=== PATIENT | female | born 1995 | race African-American/Black ===

== ENCOUNTER 2017-07-03 15:04 | Emergency (ER) | payer SELFPAY ==
[2017-07-03 15:39] LABS: Bilirubin Negative (Negative); Blood, Urine Negative (Negative); Glucose, Urine (Dipstick) Negative (Negative); Ketone, Urine Negative (Negative); Nitrite Negative (Negative); Protein, Urine (Dipstick) Negative (Neg-Trace); Urobilinogen 0.2 mg/dL (0.2-1.0)
== END 2017-07-03 17:52 | disposition home or self-care (01) ==
LOC: ERS 15:04
DX: A59.01 Trichomonal vulvovaginitis (principal); N76.0 Acute vaginitis; B96.89 Other specified bacterial agents as the cause of diseases classified elsewhere
CPT/HCPCS: 81003; 81025; 87480; 87491; 87510; 87591; 87660; 99283

== ENCOUNTER 2017-10-30 00:01 | Emergency (ER) | payer SELFPAY ==
[2017-10-30] MEDS ORDERED: Ibuprofen 800 MG TAB ONE (02:06)
== END 2017-10-30 02:15 | disposition home or self-care (01) ==
LOC: ERS 00:01
DX: J11.1 Influenza due to unidentified influenza virus with other respiratory manifestations (principal); J40 Bronchitis, not specified as acute or chronic; F41.9 Anxiety disorder, unspecified; Z71.6 Tobacco abuse counseling
CPT/HCPCS: 99406

== ENCOUNTER 2017-12-20 04:41 | Emergency (ER) | payer SELFPAY ==
[2017-12-20] MEDS ORDERED: diphenhydrAMINE 50 MG/ML VIAL ONE (04:50)
== END 2017-12-20 05:15 | disposition home or self-care (01) ==
LOC: ERS 04:41
DX: O99.341 Other mental disorders complicating pregnancy, first trimester (principal); F41.9 Anxiety disorder, unspecified; Z3A.10 10 weeks gestation of pregnancy; Z87.891 Personal history of nicotine dependence; W10.9XXA Fall (on) (from) unspecified stairs and steps, initial encounter
CPT/HCPCS: 96372; J1200

== ENCOUNTER 2018-01-04 15:59 | Emergency (ER) | payer MEDICAID, OTHER, SELFPAY ==
[2018-01-04 16:36] LABS: #Lymphocytes 2.1 thou/uL (1.20-3.40); #Monocytes 0.4 thou/uL (0.11-0.59); #Neutrophils 6.1 thou/uL (1.40-6.50); %Basophils 0.5 % (0.0-1.0); %Eosinophils 0.5 % (0.0-10.0); %Lymphocytes 24.2 % (21.0-51.0); %Monocytes 4.8 % (0.0-10.0); %Neutrophils 69.9 % (42.0-75.0); Hemoglobin 11.8 g/dL (12.0-16.0); Mean Corpuscular HGB CONC 34.4 g/dL (32.0-36.0); Mean Corpuscular Hemoglobin 33.2 pg (27.0-31.0); Mean Corpuscular Volume 96.6 fl (81.0-99.0); Mean Platelet Volume 7.6 fL (7.4-10.4); Platelet Count 208 thou/uL (130-400); RBC Distribution Width 11.7 % (11.5-14.5); Red Blood Cell (RBC) Count 3.56 mill/uL (4.20-5.40); White Blood Cell (WBC) Count 8.7 thou/uL (4.8-10.8)
[2018-01-04 16:37] LABS: BHCG - Serum POSITIVE (NEGATIVE); Pregs Control Background? CLEAR/WHITE (CLR/WHITE); Pregs Control Bar Appear? YES (CONTROL BAR)
[2018-01-04 17:45] LABS: Bilirubin Negative (Negative); Blood, Urine Negative (Negative); Clarity CLEAR (Clear); Glucose, Urine (Dipstick) Negative (Negative); Leukocyte Negative (Negative); Nitrite Negative (Negative); Protein, Urine (Dipstick) Negative (Neg-Trace); Specific Gravity, Urine 1.028 (1.002-1.036)
--- NOTE | 2018-01-04 18:14 | ULT ---
OB ULTRASOUND: Comparison: None. History: Vaginal spotting for four hours prior to arrival and cramping on the left side. The patient is 13 weeks . Technique: Multiplanar grayscale and color doppler images obtained in a transabdominal pelvic/ u ltrasound. FINDINGS: There is a single live intrauterine with heart rate of 153 beats/minute. Average age of the fetus based off today's examination is 13 weeks 1 day. The following measurements were taken today: AC 6.95 cm 13 weeks 4 days FL 1.09 cm 13 weeks 2 days Leoti-rump length was also measured but likely not as accurate given the gestational age. Head circum ference and biparietal diameter were not assessed by the technologist. Amniotic fluid volume is subjectively within normal limits. No subchorionic hemorrhage is visualized. IMPRESSION: Single live intrauterine with estimated age of approximately 13 weeks 3 days. POS: HAYDEN
== END 2018-01-04 18:02 | disposition home or self-care (01) ==
LOC: ERS 15:59
DX: O20.9 Hemorrhage in early pregnancy, unspecified (principal); Z87.891 Personal history of nicotine dependence; Z3A.13 13 weeks gestation of pregnancy
CPT/HCPCS: 36415; 76856; 81003; 84702; 84703; 85025; 86900; 86901

== ENCOUNTER 2018-03-16 07:27 | Day surgery (SDC) | payer MEDICAID, OTHER ==
[2018-03-16 08:10] VITALS: BMI 21.9
--- NOTE | 2018-03-16 10:06 | PRG ---
DATE OF SERVICE: 03/16/2018 OB ED NOTE PRESENTING COMPLAINT: Lower abdominal pain at 23 weeks' gestation. HISTORY OF PRESENT ILLNESS: Ms. Lancaster is a 23-year-old 3, para 2 at 23 weeks by her stated EDC who sees Dr. Steve Maharaj at [facility]. She reports that she stumbled out of bed and fell on the floor. She did not have abdominal trauma. She is reporting mild lower abdominal pain for approximat suzi 6-8 hours. Afterwards, she denies bleeding, rupture of membranes. She reports an active fetus. OB AND DRY WALL NAILER HISTORY: x2. Antepartum record not available. Patient denies history of complicatio ns. PAST MEDICAL HISTORY: None. PAST SURGICAL HISTORY: None. ALLERGIES: Denies. MEDICATIONS: vitamins. SOCIAL HISTORY: Denies tobacco, alcohol, or drug use. FAMILY HISTORY: Noncontributory. REVIEW OF SYSTEMS: Noncontributory. PHYSICAL EXAMINATION: GENERAL: Thin -[place] female. VITAL SIGNS: 5 feet 2, 120, temperature 98.6, respirations 18, pulse 85, blood pressure 96/54. HEENT: Within normal limits. LUNGS: Clear to auscultation bilaterally. HEART: Regular rate and rhythm. ABDOMEN: Soft and nontender. No palpable contractions. Fundal height 23 cm. No CVA tenderness not ed. EXTREMITIES: Without clubbing, cyanosis or edema. VAGINAL: Exam deferred. ABDOMEN: On abdominal exam, her areas of discomfort are consistent with a round ligament bilaterally . FHTs are 140s-150s. No decelerations heard and no contractions noted. IMPRESSION: Discomforts of , round ligament pain, no evidence of abruption. PLAN: Discharge home. EMERGENCY ROOM PRECAUTIONS: The patient to keep scheduled followup with Dr. Maharaj.
== END 2018-03-16 09:50 | disposition home or self-care (01) ==
LOC: L&D/OP 07:27
PROVIDERS: ATTEND Obstetrics & Gynecology
DX: O99.89 Other specified diseases and conditions complicating pregnancy, childbirth and the puerperium (principal); R10.9 Unspecified abdominal pain; Z3A.23 23 weeks gestation of pregnancy
CPT/HCPCS: 99282

== ENCOUNTER 2018-04-13 17:24 | Emergency (ER) | payer OTHER ==
[2018-04-13 17:52] LABS: #Basophils 0.1 thou/uL (0.0-0.2); #Eosinphils 0.2 thou/uL (0.0-0.7); #Lymphocytes 2.4 thou/uL (1.20-3.40); #Monocytes 0.7 thou/uL (0.11-0.59); %Basophils 0.6 % (0.0-1.0); %Eosinophils 2.5 % (0.0-10.0); %Lymphocytes 25.5 % (21.0-51.0); %Monocytes 7.5 % (0.0-10.0); %Neutrophils 63.9 % (42.0-75.0); Hemoglobin 11.2 g/dL (12.0-16.0); Mean Corpuscular HGB CONC 36.7 g/dL (32.0-36.0); Mean Corpuscular Hemoglobin 35.9 pg (27.0-31.0); Mean Corpuscular Volume 97.8 fL (78.0-98.0); Mean Platelet Volume 8.1 fL (7.4-10.4); Platelet Count 186 thou/uL (130-400); RBC Distribution Width 11.6 % (11.5-14.5); Red Blood Cell (RBC) Count 3.11 mill/uL (4.20-5.40); White Blood Cell (WBC) Count 9.3 thou/uL (4.8-10.8)
--- NOTE | 2018-04-13 18:09 | RAD ---
RIGHT HAND 3 VIEWS: Date: 04/13/18 HISTORY: Fall. Pain. COMPARISON: None. FINDINGS: Joint spaces are preserved. No fracture. No cortical irregularity. No periosteal reaction. IMPRESSION: No post-traumatic change. POS: MICHELLE
[2018-04-13 18:13] LABS: ALT (SGPT) 18 U/L (8-55); AST (SGOT) 23 U/L (5-34); Albumin 3.4 g/dL (3.5-5.0); Alkaline Phosphatase 93 U/L (40-150); Anion Gap 11 mmol/L (10-20); BUN (Urea Nitrogen) 12 mg/dL (7.0-18.7); Bilirubin, Total 0.2 mg/dL (0.2-1.2); Calc. Creatinine Clearance 0 mL/min (70-130); Calcium 8.8 mg/dL (7.8-10.44); Carbon Dioxide 21 mmol/L (22-29); Chloride 108 mmol/L (98-107); Estimated GFR-MDRD Greater than 90; Globulin 3.5 g/dL (2.4-3.5); Glucose 72 mg/dL (70-105); Protein, Total 6.9 g/dL (6.0-8.3); Sodium 136 mmol/L (136-145)
== END 2018-04-13 20:04 | disposition home or self-care (01) ==
LOC: ERS 17:24
DX: O9A.212 Injury, poisoning and certain other consequences of external causes complicating pregnancy, second trimester (principal); S06.9X9A Unspecified intracranial injury with loss of consciousness of unspecified duration, initial encounter; S10.91XA Abrasion of unspecified part of neck, initial encounter; Z87.891 Personal history of nicotine dependence; M79.644 Pain in right finger(s); Z3A.27 27 weeks gestation of pregnancy; W10.9XXA Fall (on) (from) unspecified stairs and steps, initial encounter
CPT/HCPCS: 29125; 80053; 85025; 86900; 86901; 96360

== ENCOUNTER 2018-04-13 20:12 | Day surgery (SDC) | payer OTHER ==
[2018-04-13 20:48] VITALS: BP 110/54; TEMP 98.6
--- NOTE | 2018-04-14 06:40 | HP ---
DATE OF ENCOUNTER: 04/13/2018 OB ER ENCOUNTER PRIMARY OB: Steve Maharaj M.D. CHIEF COMPLAINT: Fall. HISTORY OF PRESENT ILLNESS: The patient is a 23-year-old, G4, P2 female with an intrauterine pregnan cy at 27 weeks, who reports that she fell down a flight of stairs in carpeted stairs in her home arou nd 4:30 today. She hurt her hand ____ pinky as she was trying to grab the banister. She denies any contractions or bleeding or leaking fluid. She denies any bruises anywhere and reports good mo vement. The patient denies fever, headache, chest pain, shortness of breath, nausea, vomiting, diarr hea, constipation. She denies any new rashes, hip problems, knee problems, muscle weakness. She den ies vaginal bleeding, leakage of fluid or urinary urgency or frequency. PAST MEDICAL HISTORY: Anxiety. PAST SURGICAL HISTORY: Negative. OBSTETRIC HISTORY: She has had 2 term deliveries. ALLERGIES: IBUPROFEN. SOCIAL HISTORY: Denies drug, alcohol or tobacco use. MEDICATIONS: vitamins. OB LABS: Blood type is O positive. Antibody screen is negative. She is rubella immune. RPR is non reactive. GC and chlamydia are negative. Hepatitis B surface antigen is nonreactive. HIV is nonrea ctive. REVIEW OF SYSTEMS: Per HPI. PHYSICAL EXAMINATION: VITAL SIGNS: Blood pressure is 110/54, heart rate of 81, respiratory rate of 18, temperature 98.6. GENERAL: She appears to be in no acute distress. She is alert and oriented, cooperative and pleasan t to interact with. HEENT: Head is normocephalic, atraumatic. LUNGS: Clear to auscultation bilaterally. HEART: Has a regular rate and rhythm. ABDOMEN: Soft and gravid. She has a little bit of tenderness in her supraumbilical region. EXTREMITIES: Nontender, nonedematous. She has a little bit of tenderness in her left groin. GENITOURINARY: Exam has otherwise been deferred. heart tracing performed for a fall for approximately an hour and a half up to 6 hours after the incident. Baby is noted to be in the 140s with moderate long-term variability, appropriate for 27-w tribe gestation with 10 x 10 accelerations. The tocometer has a bit of noise, but no contractions that are clear. Bedside ultrasound shows a posterior placenta with a very active baby. ASSESSMENT AND PLAN: The patient is a 22-year-old, G4, P2 female with an intrauterine at 2 7 weeks, who presented after a fall from her stairs at 4:30 this afternoon. She continues to deny an y uterine contractions or cramping. Fetus has a category 1 tracing, reassuring for gestational age. The patient is being discharged to home with instructions to call her primary OB, Dr. Steve tan the morning to arrange close followup. The patient is being discharged home with labor pre cautions.
== END 2018-04-13 22:40 | disposition home or self-care (01) ==
LOC: L&D/OP 20:12
PROVIDERS: ATTEND Obstetrics & Gynecology
DX: O99.89 Other specified diseases and conditions complicating pregnancy, childbirth and the puerperium (principal); M25.559 Pain in unspecified hip; M54.5 Low back pain; O99.342 Other mental disorders complicating pregnancy, second trimester; F41.9 Anxiety disorder, unspecified; Z3A.27 27 weeks gestation of pregnancy; Z79.899 Other long term (current) drug therapy; Z88.6 Allergy status to analgesic agent; W10.8XXA Fall (on) (from) other stairs and steps, initial encounter; Y92.009 Unspecified place in unspecified non-institutional (private) residence as the place of occurrence of the external cause
CPT/HCPCS: 76815; 99282

== ENCOUNTER 2018-06-11 09:06 | Day surgery (SDC) | payer OTHER ==
[2018-06-11 09:57] VITALS: BP 107/69; TEMP 98.7
[2018-06-11 10:01] VITALS: BMI 26.6
[2018-06-11 10:26] LABS: #Eosinphils 0.2 thou/uL (0.0-0.7); #Lymphocytes 1.4 thou/uL (1.20-3.40); #Monocytes 0.5 thou/uL (0.11-0.59); #Neutrophils 4.9 thou/uL (1.40-6.50); %Basophils 0.4 % (0.0-1.0); %Eosinophils 2.5 % (0.0-10.0); %Lymphocytes 20.1 % (21.0-51.0); %Monocytes 6.7 % (0.0-10.0); %Neutrophils 70.3 % (42.0-75.0); Hemoglobin 10.2 g/dL (12.0-16.0); Mean Corpuscular HGB CONC 33.5 g/dL (32.0-36.0); Mean Corpuscular Hemoglobin 33.6 pg (27.0-31.0); Mean Platelet Volume 8.2 fL (7.4-10.4); Platelet Count 161 thou/uL (130-400); RBC Distribution Width 12.2 % (11.5-14.5); Red Blood Cell (RBC) Count 3.05 mill/uL (4.20-5.40)
[2018-06-11 10:48] LABS: ALT (SGPT) 13 U/L (8-55); AST (SGOT) 18 U/L (5-34); Albumin 3.1 g/dL (3.5-5.0); Alkaline Phosphatase 139 U/L (40-150); Anion Gap 12 mmol/L (10-20); BUN (Urea Nitrogen) 9 mg/dL (7.0-18.7); Bilirubin, Total 0.3 mg/dL (0.2-1.2); Calc. Creatinine Clearance 150 mL/min (70-130); Calcium 8.8 mg/dL (7.8-10.44); Carbon Dioxide 22 mmol/L (22-29); Chloride 107 mmol/L (98-107); Estimated GFR-MDRD Greater than 90; Globulin 3.2 g/dL (2.4-3.5); Glucose 100 mg/dL (70-105); Potassium 3.4 mmol/L (3.5-5.1); Protein, Total 6.3 g/dL (6.0-8.3); Sodium 138 mmol/L (136-145)
--- NOTE | 2018-06-11 13:24 | SS ---
DATE OF EVALUATION: 06/11/2018 REGULAR PHYSICIAN: Steve Maharaj M.D. EVALUATING PHYSICIAN: Luis A Yates M.D. CHIEF COMPLAINT: Feeling lightheaded over the last 24 hours. HISTORY OF PRESENT ILLNESS: Ms. Lancaster is a 22-year-old black G4, P2, AB1 with an estimated date of confinement of 07/13/2018 who presents complaining a history of intermittent episodes of lightheaded ness over the last 24 hours. She denies nausea, vomiting, fever or chills. She also denies associat ed vaginal bleeding or leaking. Her care has been with Dr. Maharaj. PAST OBSTETRICAL HISTORY: Includes 2 vaginal deliveries at term and one miscarriage. PAST MEDIAL HISTORY: Anxiety, currently not on medication. PAST SURGICAL HISTORY: None. CURRENT MEDICATIONS: vitamins and iron. ALLERGIES: MOTRIN, which she says gives her "blisters in her nose." SOCIAL HISTORY: Denies tobacco, alcohol, or drug use. FAMILY HISTORY: Unremarkable. REVIEW OF SYSTEMS: Denies nausea, vomiting, fever, chills, vaginal bleeding or rupture of membranes. PHYSICAL EXAMINATION: VITAL SIGNS: Blood pressure in triage is 107/69, pulse is 91. She is afebrile. ABDOMEN: Soft and nontender. heart tones are stable. No uterine contractions are seen. LABORATORY DATA: White count 7.0, hemoglobin and hematocrit 10.2 and 30.6, platelet count is 161. C hemistry: Sodium of 138, potassium 3.4, BUN 9, creatinine 0.6, glucose 100, total bilirubin 0.3, AST and ALT are 18 and 13 respectively. ASSESSMENT: 1. A 35-week intrauterine . 2. History of lightheadedness, likely related to poor hydration at home. 3. Anemia. PLAN: The patient will be discharged to home at this time. She was instructed to be compliant with the iron which Dr. Maharaj gave her and to increase her oral hydration at home. She was given complete precautions and was sent home in good condition.
== END 2018-06-11 11:55 | disposition home health service (06) ==
LOC: L&D/OP 09:06
PROVIDERS: ATTEND Obstetrics & Gynecology
DX: O99.89 Other specified diseases and conditions complicating pregnancy, childbirth and the puerperium (principal); R42 Dizziness and giddiness; F41.9 Anxiety disorder, unspecified; D64.9 Anemia, unspecified; Z98.890 Other specified postprocedural states; Z88.8 Allergy status to other drugs, medicaments and biological substances; Z3A.35 35 weeks gestation of pregnancy
CPT/HCPCS: 36415; 80053; 85025; 99282

== ENCOUNTER 2018-06-21 00:07 | Day surgery (SDC) | payer OTHER ==
[2018-06-21 00:31] VITALS: BP 119/56; TEMP 98.1; BMI 26.3
[2018-06-21 01:10] LABS: Amnisure Internal Control QC ACCEPTABLE (ACCEPTABLE)
[2018-06-21 01:20] LABS: Amnisure Test No Membranes Rupture (No Rupture)
--- NOTE | 2018-06-21 01:41 | PDOC.FPROB ---
FMR OB H&P: HPI - History of Present Illness Chief Complaint: leaking fluid History of Present Illness: 23 yo at 36.6 by LMP/reported sono who presents with cc of LOF. She states she was sitting up eating at around 1130 pm when she felt a trickling and noticed a white discharge in her underwear. She went to shower and when getting into the shower she slipped and fell on her elbow and then about another foot onto her bottom. She denies falling onto her abdomen. She is feeling baby move. She denies any vaginal bleeding. She has had recurrent yeast infections this and has taken 2/3 weekly fluconazole doses. Primary Care Physician: Dr. Maharaj FMR OB H&P: Current - Care : 4 Para: 2 Gestational age: 37.3 Due date: 07/09/2018 Dating Criteria: LMP/sono - OB Labs Blood type: O RH: positive HIV: negative RPR: negative HepBsAg: negative Rubella: immune Gonorrhea: negative Chlamydia: negative 1 hour gtt: 83 GBS: positive - Anatomy Survey Anatomy survey: Reportedly normal per patient FMR OB H&P: History - Past Medical History PMH: Anxiety - OB History OB History: 2008 40 weeks M 5# 14 oz 2011 37 weeks F 6# 2 oz 2016 8 weeks SAB - Surgical History Sx History: None - Social History Social History: Denies tobacco, alcohol, drug use, reports she is safe at home - Family History Family History: Grandmother with HTN, does not know mom/dad family history FMR OB H&P: Medications - Current Home Medications: Medication Instructions Recorded Confirmed Type Vitamin 1 tablet PO DAILY 03/16/18 06/21/18 History Fluconazole 150 tablet PO ONE 06/21/18 06/21/18 History Allergies/Adverse Reactions: Allergies Allergy/AdvReac Type Severity Reaction Status Date / Time ibuprofen [From Motrin] Allergy Hives Verified 06/21/18 00:27 FMR OB H&P: ROS - Review of Systems General: denies: fever/chills, weight/appetite/sleep changes Eyes: denies: eye pain, vision changes ENT: denies: nasal congestion, rhinorrhea Cardiovascular: denies: chest pain, palpitation Respiratory: denies: cough, congestion Gastrointestinal: denies: abdominal pain, cramping Genitourinary (Female): denies: dysuria, hematuria Musculoskeletal: denies: pain, stiffness Neurologic: denies: syncope, loss of counsciousness Integumentary: denies: itching, rash Endocrine: denies: polydipsia, polyuria Psychological: reports: anxiety. denies: depression FMR OB H&P: Vital Signs - Maternal Vital signs: Vital Signs - First Documented Temp Pulse Resp BP 98.1 F 87 16 119/56 L 06/21/18 00:06/21/18 00:06/21/18 00:06/21/18 00:26 - Heart Tones Baseline: 130 Variability: moderate Acceleration: present Deceleration: absent Category: category 1 [place] contractions every: none FMR OB H&P: Physical Exam - Physical Exam General: NAD, awake, alert and oriented HEENT: normocephalic and atraumatic Neck: supple, trachea midline Chest: non-tender to palpation Breast: symmetric, non-tender Heart: RRR, normal S1/S2 General: CTAB, no respiratory distress Abdomen: soft, gravid, non-tender Musculoskeletal: normal gait and station Skin: no rash, capillary refill <2 seconds Psychiatric: intact recent and remote memory, good judgement and insight, normal mood and affect - Pelvic Exam Deviation from normal: scant white discharge SVE: 360/-3 Presentation: vertex Estimated Weight: 6 lbs FMR OB H&P: Results - Labs Lab results: Laboratory Results - last 24 hr 06/21/18 00:35 Amnio Swab Test No Membranes Rupture FMR OB H&P: A/P - Problem List (1) Current Visit: Yes Status: Acute (2) Fall Current Visit: Yes Status: Acute Code(s): W19.XXXA - UNSPECIFIED FALL, INITIAL ENCOUNTER (3) Vaginal discharge during Current Visit: Yes Status: Acute Code(s): O26.899 - OTH RELATED CONDITIONS, UNSPECIFIED TRIMESTER; N89.8 - OTHER SPECIFIED NONINFLAMMATORY DISORDERS OF VAGINA Disposition: 23 yo at 37.3w by LMP/sono here with concern for LOF and after fall from standing 1. Vaginal discharge - Patient reports white d/c - Scant thick white d/c on exam, consistent with ongoing yeast infection - Amnisure negative, bedside sono showed DVP > 5cm - VP3 pending - Will notify if positive result - Dr. Arroyo notified - F/u with Dr. Maharaj this week 2. Fall - Fell onto bottom total of about 1 foot per patient - Reassuring FHTs - Discussed return precautions Discussion: Date/Time: 06/21/18 0135 Patient was seen and discussed with Dr. Thurman.. Signature: Ann Simeon MD, PGY-3
== END 2018-06-21 02:35 | disposition home or self-care (01) ==
LOC: L&D/OP 00:07
PROVIDERS: ATTEND Obstetrics & Gynecology
DX: O99.89 Other specified diseases and conditions complicating pregnancy, childbirth and the puerperium (principal); N89.8 Other specified noninflammatory disorders of vagina; Z3A.36 36 weeks gestation of pregnancy; Z79.899 Other long term (current) drug therapy; Z88.6 Allergy status to analgesic agent; W18.2XXA Fall in (into) shower or empty bathtub, initial encounter
CPT/HCPCS: 76815; 84112; 87480; 87510; 87660; 99285

== ENCOUNTER 2018-07-01 18:43 | Inpatient (IN) | payer OTHER ==
[~2018-07-01 18:43] MED LIST: Bupivacaine/Epinephrine 0.25% 30 ML VIAL ONE
[2018-07-01 19:19] VITALS: BMI 27.1
[2018-07-01] MEDS ORDERED: Acetaminophen 500 MG TAB PO PRN (19:33)
[2018-07-01] MEDS ORDERED: Promethazine HCl 25 MG/ML VIAL IM PRN ×2 (19:33→22:28)
[2018-07-01] MEDS ORDERED: Ondansetron HCl/PF 4 MG/2 ML Vial IVP PRN ×2 (19:33→22:28)
[2018-07-01] MEDS ORDERED: Zolpidem Tartrate 5 MG TAB PO PRN (19:33)
[2018-07-01] MEDS ORDERED: Butorphanol Tartrate 1 MG/ML VIAL SLOW IVP PRN (19:33)
[2018-07-01] MEDS ORDERED: Acetaminophen/Codeine 30-300mg Tablet PO PRN ×2 (19:36)
[2018-07-01] MEDS ORDERED: NS / Oxytocin 40 units/1000ml 1,000 ML IV PRN (19:36)
[2018-07-01] MEDS ORDERED: Misoprostol 200 MCG TAB PR PRN (19:36)
[2018-07-01] MEDS ORDERED: Lidocaine 1% (PF) 30 ML VIAL SC PRN (19:36)
[2018-07-01] MEDS ORDERED: Penicillin G Potassium 5 MILL.UNITS in Sodium Chloride 0.9% 100 ML IVPB SCH (19:45)
[2018-07-01] MEDS: Lactated Ringer's 1,000 ML IV SCH ×2 (20:33→22:34)
[2018-07-01 20:42] LABS: Hemoglobin 11.7 g/dL (12.0-16.0); Mean Corpuscular HGB CONC 34.2 g/dL (32.0-36.0); Mean Corpuscular Hemoglobin 34.5 pg (27.0-31.0); Mean Platelet Volume 8.8 fL (7.4-10.4); Platelet Count 178 thou/uL (130-400); RBC Distribution Width 11.9 % (11.5-14.5)
[2018-07-01] MEDS ORDERED: Penicillin G Potassium 5 MILL.UNITS VIAL ONE (20:42)
[2018-07-01] MEDS ORDERED: Fentanyl 4 mcg/Bup 0.1% Cadd 100 ML ONE (21:16)
[2018-07-01 21:19] LABS: Syphilis Antibody Nonreactive (Nonreactive); Syphilis Antibody Index 0.05 S/CO (<1.00 Non-Reactive)
[2018-07-01] MEDS: Fentanyl 4 mcg/Bupivacaine 0.1% Cassette 100 ML EPIDURAL SCH (22:22)
[2018-07-01] MEDS ORDERED: Naloxone HCl 0.4 mg/ml Vial IVP PRN ×2 (22:28)
[2018-07-01] MEDS ORDERED: Lactated Ringer's 500 ML IV PRN (22:28)
[2018-07-01] MEDS ORDERED: diphenhydrAMINE 50 MG/ML VIAL IVP PRN (22:28)
[2018-07-01] MEDS ORDERED: Acetaminophen 325 MG TAB PO PRN (22:28)
[2018-07-01] MEDS ORDERED: Eucerin (Mineral Oil/Petrolatum,White) 30 gm Jar TOP PRN (22:28)
[2018-07-01] MEDS ORDERED: ePHEDrine/0.9% NaCl/PF SYRINGE 50 mg/10 ml SLOW IVP PRN (22:28)
[2018-07-01] MEDS ORDERED: Communication Order-Pharmacy FS SCH (22:30)
[2018-07-02] MEDS: Penicillin G 2.5 MILL.units 2.5 MILL.UNITS in Premix Bag 1 BAG IVPB SCH ×4 (01:30→09:49)
[2018-07-02 01:50] LABS: HBSAg Index 0.14 S/CO (0-0.99); Hep B Surf Ag Non-Reactive S/CO (NonReactive)
[2018-07-02] MEDS ORDERED: Fentanyl 4 mcg/Bup 0.1% Cadd 100 ML ONE (06:40)
[2018-07-02] MEDS: Fentanyl 4 mcg/Bupivacaine 0.1% Cassette 100 ML EPIDURAL SCH (06:45)
[2018-07-02] MEDS: Lactated Ringer's 1,000 ML IV SCH (08:20)
[2018-07-02] MEDS ORDERED: NS w/ Oxytocin 10 units 500 ML ONE (11:39)
[2018-07-02] MEDS ORDERED: NS w/ Oxytocin 10 units 500 ML IVPB SCH (12:15)
[2018-07-02] MEDS ORDERED: Milk Of Magnesia 30 ML UDCUP PO PRN (12:58)
[2018-07-02] MEDS ORDERED: Zolpidem Tartrate 5 MG TAB PO PRN (12:58)
[2018-07-02] MEDS ORDERED: Misoprostol 200 MCG TAB VAG PRN (12:58)
[2018-07-02] MEDS ORDERED: Acetaminophen/Codeine 30-300mg Tablet PO PRN ×2 (12:58)
[2018-07-02] MEDS ORDERED: Ondansetron HCl/PF 4 MG/2 ML Vial IVP PRN (12:58)
[2018-07-02] MEDS ORDERED: Lanolin Ointment 7 GM TUBE TOP PRN (12:58)
[2018-07-02] MEDS ORDERED: Adacel (T-DAP) 0.5 ML VIAL IM ONE (12:58)
[2018-07-02] MEDS ORDERED: Benzocaine/Menthol 20-0.5% 60 ML CAN TOP PRN (12:58)
[2018-07-02] MEDS ORDERED: Preparation H Ointment 28 GM TUBE PR PRN (12:58)
[2018-07-02] MEDS ORDERED: Bisacodyl 10 MG SUPP PR PRN (12:58)
[2018-07-02] MEDS ORDERED: diphenhydrAMINE 25 MG CAP PO PRN (12:58)
[2018-07-02] MEDS ORDERED: NS / Oxytocin 40 units/1000ml 1,000 ML IV SCH (13:00)
[2018-07-02] MEDS: Ferrous Sulfate 325 MG TAB PO SCH (16:16)
[2018-07-02] MEDS: HYDROcodone/Acetaminophen 7.5/325 mg Tablet PO PRN (17:35)
[2018-07-02] MEDS: Docusate Calcium (SURFAK) 240 MG CAP PO SCH (21:26)
[2018-07-03] MEDS: HYDROcodone/Acetaminophen 7.5/325 mg Tablet PO PRN ×3 (00:09→21:34)
[2018-07-03] MEDS ORDERED: Prenatal Vitamin 1 TAB ONE (09:01)
[2018-07-03] MEDS: Ferrous Sulfate 325 MG TAB PO SCH ×2 (13:54→18:06)
[2018-07-03 17:15] LABS: Hemoglobin 10.1 g/dL (12.0-16.0); Mean Corpuscular HGB CONC 33.8 g/dL (32.0-36.0); Mean Corpuscular Hemoglobin 34.4 pg (27.0-31.0); Mean Platelet Volume 9.6 fL (7.4-10.4); Platelet Count 123 thou/uL (130-400); RBC Distribution Width 11.8 % (11.5-14.5); Red Blood Cell (RBC) Count 2.93 mill/uL (4.20-5.40); White Blood Cell (WBC) Count 7.6 thou/uL (4.8-10.8)
[2018-07-03] MEDS: Prenatal Vitamin 1 TAB PO SCH (21:35)
[2018-07-03] MEDS: Docusate Calcium (SURFAK) 240 MG CAP PO SCH (21:35)
[2018-07-04 08:25] VITALS: BP 98/56; TEMP 98.2
[2018-07-04] MEDS: Ferrous Sulfate 325 MG TAB PO SCH (09:40)
[2018-07-04] MEDS: Docusate Calcium (SURFAK) 240 MG CAP PO SCH (09:41)
[2018-07-04] MEDS: Prenatal Vitamin 1 TAB PO SCH (09:41)
== END 2018-07-04 12:50 | disposition home or self-care (01) | DRG 807 ==
LOC: L&D/OP 18:43 → L&D 23:01 → 3SW 07-02 15:19
PROVIDERS: ADMIT Obstetrics & Gynecology; ATTEND Obstetrics & Gynecology
PROC: 10E0XZZ Delivery of Products of Conception, External Approach (ICD-10-PCS; principal; 2018-07-01)
PROC: 10907ZC Drainage of Amniotic Fluid, Therapeutic from Products of Conception, Via Natural or Artificial Opening (ICD-10-PCS; 2018-07-01)
DX: O99.824 Streptococcus B carrier state complicating childbirth (principal); Z37.0 Single live birth; Z3A.39 39 weeks gestation of pregnancy; O69.81X0 Labor and delivery complicated by cord around neck, without compression, not applicable or unspecified
CPT/HCPCS: 36415; 51702; 85027; 86780; 86850; 86900; 86901; 87340; 90471; 90686; 90715; 99285; G0008; J1200; J2001; J2540; J7050

== ENCOUNTER 2019-08-24 22:54 | Emergency (ER) | payer OTHER ==
--- NOTE | 2019-08-24 23:39 | RAD ---
Exam:3 views right hand HISTORY: Trauma. Pain. COMPARISON: 04/13/2018 FINDINGS: Joint spaces are preserved. No fracture, cortical irregularity or periosteal reaction. IMPRESSION: No fracture.
== END 2019-08-25 00:02 | disposition home or self-care (01) ==
LOC: ERS 22:54
DX: O9A.212 Injury, poisoning and certain other consequences of external causes complicating pregnancy, second trimester (principal); S01.511A Laceration without foreign body of lip, initial encounter; S30.0XXA Contusion of lower back and pelvis, initial encounter; S60.221A Contusion of right hand, initial encounter; F17.210 Nicotine dependence, cigarettes, uncomplicated; F41.9 Anxiety disorder, unspecified; Z3A.00 Weeks of gestation of pregnancy not specified
CPT/HCPCS: 93005

== ENCOUNTER 2020-10-10 20:47 | Emergency (ER) | payer OTHER ==
[~2020-10-10 20:47] MED LIST changes: -Bupivacaine/Epinephrine 0.25% 30 ML VIAL ONE; +Iopamidol-370 76% 500 ML 1 ML ONE
[2020-10-10 21:51] LABS: BHCG - Serum Negative (NEGATIVE); Pregs Control Background? CLEAR/WHITE (CLR/WHITE); Pregs Control Bar Appear? YES (CONTROL BAR)
[2020-10-10 22:04] LABS: %Basophils 0.8 % (0.0-1.0); %Lymphocytes 31.6 % (21.0-51.0); %Monocytes 7.2 % (0.0-10.0); %Neutrophils 59.4 % (42.0-75.0); Hemoglobin 12.1 g/dL (12.0-16.0); Mean Corpuscular HGB CONC 33.5 g/dL (32.0-36.0); Mean Corpuscular Hemoglobin 32.9 pg (27.0-31.0); Mean Corpuscular Volume 98.1 fL (78.0-98.0); Mean Platelet Volume 7.7 fL (7.4-10.4); Platelet Count 246 thou/uL (130-400); RBC Distribution Width 11.9 % (11.5-14.5); Red Blood Cell (RBC) Count 3.67 mill/uL (4.20-5.40); White Blood Cell (WBC) Count 6.7 thou/uL (4.8-10.8)
[2020-10-10 22:05] LABS: #Basophils 0.1 thou/uL (0.0-0.2); #Eosinphils 0.1 thou/uL (0.0-0.7); #Lymphocytes 2.1 thou/uL (1.20-3.40); #Monocytes 0.5 thou/uL (0.11-0.59)
[2020-10-10 22:17] LABS: Anion Gap 12 mmol/L (10-20); BUN (Urea Nitrogen) 14 mg/dL (7.0-18.7); Calc. Creatinine Clearance 0 mL/min (70-130); Carbon Dioxide 27 mmol/L (22-29); Chloride 104 mmol/L (98-107); Potassium 3.8 mmol/L (3.5-5.1); Sodium 139 mmol/L (136-145)
[2020-10-10 22:18] LABS: ALT (SGPT) 11 U/L (8-55); AST (SGOT) 15 U/L (5-34); Albumin 3.7 g/dL (3.5-5.0); Alkaline Phosphatase 62 U/L (40-110); Bilirubin, Total 0.2 mg/dL (0.2-1.2); Calcium 8.5 mg/dL (7.8-10.44); Globulin 3.4 g/dL (2.4-3.5); Glucose 84 mg/dL (70-105); Protein, Total 7.1 g/dL (6.0-8.3)
--- NOTE | 2020-10-11 07:52 | CT ---
CT ANGIO CHEST PERFORMED WITH INTRAVENOUS CONTRAST ENHANCEMENT WITH 3D RECONSTRUCTIONS: HISTORY: Shortness of breath. History of DVT. FINDINGS: The lungs are clear of any infiltrative process. No pleural effusions or pulmonary nodules are ident ified. The thoracic aorta is normal in caliber. No significant mediastinal or hilar adenopathy. There is good pulmonary artery opacification and no CT evidence for pulmonary embolus. Visualized liver parenchyma shows no focal findings. Right and left adrenal glands are normal. IMPRESSION: No CT evidence for pulmonary embolus. POS: OFF
--- NOTE | 2020-11-01 13:15 | EKG ---
Test Reason : Blood Pressure : / mmHG Vent. Rate : 079 BPM Atrial Rate : 079 BPM P-R Int : 128 ms QRS Dur : 060 ms QT Int : 358 ms P-R-T Axes : 039 032 021 degrees QTc Int : 410 ms Normal sinus rhythm Normal ECG Confirmed by COLEEN FLORES ([id number]), book editor AIDE PRIDE ([id number]) on 11/01/2020 1:14:30 PM Referred By: Confirmed By:COLEEN Badillo
== END 2020-10-10 22:59 | disposition home or self-care (01) ==
LOC: ERS 20:47
DX: R07.89 Other chest pain (principal); F17.210 Nicotine dependence, cigarettes, uncomplicated
CPT/HCPCS: 36415; 71275; 80053; 84484; 84703; 85025; 93005; Q9967

== ENCOUNTER 2020-10-23 21:39 | Emergency (ER) | payer OTHER ==
[2020-10-23 22:16] LABS: #Lymphocytes 2.4 thou/uL (1.20-3.40); #Monocytes 0.6 thou/uL (0.11-0.59); #Neutrophils 4.8 thou/uL (1.40-6.50); %Basophils 0.6 % (0.0-1.0); %Eosinophils 0.5 % (0.0-10.0); %Lymphocytes 30.7 % (21.0-51.0); %Monocytes 7.3 % (0.0-10.0); %Neutrophils 60.9 % (42.0-75.0); Hemoglobin 12.1 g/dL (12.0-16.0); Mean Corpuscular HGB CONC 33.4 g/dL (32.0-36.0); Mean Corpuscular Hemoglobin 32.6 pg (27.0-31.0); Mean Corpuscular Volume 97.5 fL (78.0-98.0); Mean Platelet Volume 7.8 fL (7.4-10.4); Platelet Count 220 thou/uL (130-400); RBC Distribution Width 12.1 % (11.5-14.5); White Blood Cell (WBC) Count 7.8 thou/uL (4.8-10.8)
[2020-10-23 22:23] LABS: Bilirubin Negative (Negative); Blood, Urine Negative (Negative); Clarity Clear (Clear); Glucose, Urine (Dipstick) Normal (Negative); Ketone, Urine Negative (Negative); Leukocyte Negative Leu/uL (Negative); Nitrite Negative (Negative); Protein, Urine (Dipstick) Negative (Neg-Trace); Specific Gravity, Urine 1.028 (1.002-1.036); Urobilinogen 3 mg/dL (Less than 2); pH, Urine 6.5 (5.0-9.0)
[2020-10-23 22:29] LABS: Pregnancy Test - Urine (BHCG) Negative (Negative); Pregu Control Background? CLEAR/WHITE (CLR/WHITE); Pregu Control Bar Appear? YES (CONTROL BAR); Specific Gravity 1.028 (1.002-1.036)
[2020-10-23 22:41] LABS: ALT (SGPT) 20 U/L (8-55); AST (SGOT) 22 U/L (5-34); Albumin 3.6 g/dL (3.5-5.0); Alkaline Phosphatase 60 U/L (40-110); Anion Gap 9 mmol/L (10-20); BUN (Urea Nitrogen) 14 mg/dL (7.0-18.7); Bilirubin, Total 0.2 mg/dL (0.2-1.2); Calc. Creatinine Clearance 0 mL/min (70-130); Calcium 8.4 mg/dL (7.8-10.44); Carbon Dioxide 27 mmol/L (22-29); Chloride 108 mmol/L (98-107); Globulin 3.4 g/dL (2.4-3.5); Glucose 86 mg/dL (70-105); Potassium 4.1 mmol/L (3.5-5.1); Sodium 140 mmol/L (136-145)
== END 2020-10-23 22:52 | disposition left against medical advice (07) ==
LOC: ERS 21:39
DX: Z53.21 Procedure and treatment not carried out due to patient leaving prior to being seen by health care provider (principal)
CPT/HCPCS: 36415; 80053; 81003; 81025; 85025

== ENCOUNTER 2020-12-07 20:16 | Emergency (ER) | payer OTHER | END 2020-12-07 20:44 | disposition home or self-care (01) | LOC: ERS 20:16 | DX: R42 Dizziness and giddiness (principal); F17.210 Nicotine dependence, cigarettes, uncomplicated | CPT/HCPCS: 99281 ==

== ENCOUNTER 2021-01-19 18:27 | Emergency (ER) | payer OTHER ==
[2021-01-20 01:15] LABS: SARS-CoV-2 PCR by NAA Not Detected (NotDetected)
== END 2021-01-19 19:15 | disposition home or self-care (01) ==
LOC: ERS 18:27
DX: R51.9 Headache, unspecified (principal); R09.81 Nasal congestion; R09.89 Other specified symptoms and signs involving the circulatory and respiratory systems; Z20.822 Contact with and (suspected) exposure to COVID-19; F17.210 Nicotine dependence, cigarettes, uncomplicated
CPT/HCPCS: 87635; 99284; U0003; U0005

== ENCOUNTER 2021-03-01 01:49 | Emergency (ER) | payer OTHER ==
[2021-03-01] MEDS ORDERED: Acetaminophen 500 MG TAB ONE (02:10)
== END 2021-03-01 02:14 ==
LOC: ERS 01:49
DX: T14.8XXA Other injury of unspecified body region, initial encounter (principal); S00.511A Abrasion of lip, initial encounter; F41.9 Anxiety disorder, unspecified; F17.210 Nicotine dependence, cigarettes, uncomplicated; Y04.0XXA Assault by unarmed brawl or fight, initial encounter
CPT/HCPCS: 99284